=== PATIENT | female | born 1975 | race Caucasian/White ===

== ENCOUNTER 2025-05-04 11:34 | Outpatient (CLI) | payer MEDICAID ==
--- NOTE | 2025-05-04 14:14 | RADIOLOGY REPORT ---
EXAM: MR MRI LOWER EXTREMITY RIGHT INDICATION: OSTEOMYELITIS,VENOUS INSUFFICIENCY (CHRONIC) (PERIPHERAL) TECHNIQUE: Multiplanar and multisequence MR imaging of the right ankle was performed in the absence o f gadolinium contrast. COMPARISON: None FINDINGS: No areas of cortical destruction of the tibia or fibula. No areas of altered signal intensity in the marrow spaces of the tibia or fibula No soft tissue abscess No area of significant muscle edema. Skin ulcer over the distal anteromedial foreleg with surrounding cellulitis. IMPRESSION: 1. No evidence of osteomyelitis or soft tissue abscess
== END 2025-05-04 23:59 | disposition home or self-care (01) ==
LOC: MRI02 11:34
PROVIDERS: ATTEND Nurse Practitioner Family
DX: L03.115 Cellulitis of right lower limb (principal); I87.2 Venous insufficiency (chronic) (peripheral); M86.9 Osteomyelitis, unspecified
CPT/HCPCS: 73718